=== PATIENT | female | born 1935 | race Caucasian/White ===

== ENCOUNTER → 2020-07-15 | Outpatient (CLI) | payer MEDICARE | END | disposition home or self-care (01) | LOC: LAB SHORT 08:38 → LAB 08:38 | DX: D48.5 Neoplasm of uncertain behavior of skin (principal) | CPT/HCPCS: 88305 ==

== ENCOUNTER → 2021-09-02 | Outpatient (CLI) | payer MEDICARE | END | disposition home or self-care (01) | LOC: LAB SHORT 14:58 → PLD 14:58 | DX: D03.71 Melanoma in situ of right lower limb, including hip (principal); L08.0 Pyoderma | CPT/HCPCS: 87070; 87077; 87186; 87205; 88305 ==

== ENCOUNTER 2021-09-15 01:44 | Day surgery (SDC) | payer MEDICARE | END 2021-09-15 22:58 | disposition home or self-care (01) | LOC: WOUND 01:44 | DX: I83.028 Varicose veins of left lower extremity with ulcer other part of lower leg (principal); I83.018 Varicose veins of right lower extremity with ulcer other part of lower leg; L97.312 Non-pressure chronic ulcer of right ankle with fat layer exposed; L97.322 Non-pressure chronic ulcer of left ankle with fat layer exposed; L89.613 Pressure ulcer of right heel, stage 3; I83.11 Varicose veins of right lower extremity with inflammation; I83.12 Varicose veins of left lower extremity with inflammation; I10 Essential (primary) hypertension | CPT/HCPCS: A9270 ==

== ENCOUNTER 2021-09-18 00:29 | Day surgery (SDC) | payer MEDICARE | END 2021-09-18 23:33 | disposition home or self-care (01) | LOC: WOUND 00:29 | DX: I83.028 Varicose veins of left lower extremity with ulcer other part of lower leg (principal); I83.018 Varicose veins of right lower extremity with ulcer other part of lower leg; I83.11 Varicose veins of right lower extremity with inflammation; I83.12 Varicose veins of left lower extremity with inflammation; I87.313 Chronic venous hypertension (idiopathic) with ulcer of bilateral lower extremity ==

== ENCOUNTER 2021-09-22 08:00 | Day surgery (SDC) | payer MEDICARE | END 2021-09-22 23:59 | disposition home or self-care (01) | LOC: WOUND 08:00 | DX: L97.312 Non-pressure chronic ulcer of right ankle with fat layer exposed (principal); L97.322 Non-pressure chronic ulcer of left ankle with fat layer exposed; L89.513 Pressure ulcer of right ankle, stage 3; S81.801D Unspecified open wound, right lower leg, subsequent encounter; L97.512 Non-pressure chronic ulcer of other part of right foot with fat layer exposed; L03.116 Cellulitis of left lower limb ==

== ENCOUNTER 2021-09-29 02:12 | Day surgery (SDC) | payer MEDICARE | END 2021-09-29 22:58 | disposition home or self-care (01) | LOC: WOUND 02:12 | DX: L97.312 Non-pressure chronic ulcer of right ankle with fat layer exposed (principal); L97.322 Non-pressure chronic ulcer of left ankle with fat layer exposed; L89.893 Pressure ulcer of other site, stage 3; S81.801A Unspecified open wound, right lower leg, initial encounter | CPT/HCPCS: A9270 ==

== ENCOUNTER 2021-10-06 02:11 | Day surgery (SDC) | payer MEDICARE | END 2021-10-06 23:29 | disposition home or self-care (01) | LOC: WOUND 02:11 | DX: L97.322 Non-pressure chronic ulcer of left ankle with fat layer exposed (principal); L97.312 Non-pressure chronic ulcer of right ankle with fat layer exposed; L97.512 Non-pressure chronic ulcer of other part of right foot with fat layer exposed; S81.801D Unspecified open wound, right lower leg, subsequent encounter; L03.116 Cellulitis of left lower limb; L89.613 Pressure ulcer of right heel, stage 3 | CPT/HCPCS: A9270 ==

== ENCOUNTER → 2023-01-20 | Outpatient (CLI) | payer MEDICARE | LOC: LAB 12:00 → LAB SHORT 12:00 | DX: L08.9 Local infection of the skin and subcutaneous tissue, unspecified (principal) | CPT/HCPCS: 87070; 87077; 87147; 87186; 87205 ==

== ENCOUNTER → 2023-02-10 | Outpatient (CLI) | payer MEDICARE | LOC: LAB SHORT 12:30 → LAB 12:30 | DX: Z48.817 Encounter for surgical aftercare following surgery on the skin and subcutaneous tissue (principal); C44.91 Basal cell carcinoma of skin, unspecified; L08.9 Local infection of the skin and subcutaneous tissue, unspecified | CPT/HCPCS: 87070; 87077; 87147; 87186; 87205 ==

== ENCOUNTER → 2023-04-06 | Outpatient (CLI) | payer MEDICARE | LOC: LAB SHORT 18:09 → LAB 18:09 | DX: L08.9 Local infection of the skin and subcutaneous tissue, unspecified (principal) | CPT/HCPCS: 87070; 87077; 87186; 87205 ==

== ENCOUNTER → 2023-06-29 | Outpatient (CLI) | payer MEDICARE | LOC: LAB SHORT 16:30 → LAB 16:30 | DX: L08.9 Local infection of the skin and subcutaneous tissue, unspecified (principal) | CPT/HCPCS: 87070; 87077; 87186; 87205 ==